=== PATIENT | female | born 2000 | race Caucasian/White ===

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

== ENCOUNTER 2024-03-03 12:03 | Outpatient (CLI) | payer BC, SELFPAY ==
--- NOTE | ~2024-03-03 | XR_ITS ---
XR ankle LT min 3V Ordering provider: TONY RandolphC History: . M79.672 - Pain in left foot . Comparison: FINDINGS: BONES: No acute fracture or dislocation. JOINT SPACES: The ankle mortise is normal. SOFT TISSUES: Normal. IMPRESSION: No acute osseous abnormality left ankle. Reviewed, dictated and finalized at [facility]. OR GIS ANALYST
== END 2024-03-03 12:04 | disposition home or self-care (01) ==
LOC: GOSHIMG 12:04
PROVIDERS: PCP Family Medicine; Visit Provider Nurse Practitioner Family
DX: M79.672 Pain in left foot (principal)
CPT/HCPCS: 73610